=== PATIENT | female | born 1965 | race Caucasian/White ===

== ENCOUNTER → 2018-01-23 | Outpatient (CLI) | payer BC ==
[2018-01-23 11:41] LABS: BASO # 0.1 10^3/uL (0.0-0.2); BASO % 0.6 % (0.0-1.0); EOS # 0.6 10^3/uL (0.0-0.50); EOS % 6.6 % (0.0-3.0); HEMATOCRIT 41.6 % (36.0-47.0); HEMOGLOBIN 14.2 g/dl (12.0-15.5); IMMATURE GRANULOCYTE % 0.2 % (0-3.0); LYMPH # 2.4 10^3/uL (1.5-4.5); LYMPH % 25.2 % (24.0-44.0); MEAN CORPUSCULAR HEMOGLOBIN 28.8 pg (27.0-33.0); MEAN CORPUSCULAR HGB CONC 34.1 g/dl (32.0-36.5); MEAN CORPUSCULAR VOLUME 84.4 fl (80.0-96.0); MONO # 0.7 10^3/uL (0.0-0.8); MONO % 7.7 % (0.0-5.0); NEUTROPHILS # 5.7 10^3/uL (1.8-7.7); NEUTROPHILS % 59.7 % (36.0-66.0); PLATELET COUNT, AUTOMATED 289 10^3/uL (150-450); RED BLOOD COUNT 4.93 10^6/uL (4.00-5.40); RED CELL DISTRIBUTION WIDTH 13.3 % (11.5-14.5); WHITE BLOOD COUNT 9.6 10^3/uL (4.0-10.0)
[2018-01-23 12:26] LABS: ALBUMIN 3.9 GM/DL (3.2-5.2); ALBUMIN/GLOBULIN RATIO 1.26 (1.00-1.93); ALKALINE PHOSPHATASE 147 U/L (45-117); ALT/SGPT 23 U/L (12-78); ANION GAP 8 MEQ/L (8-16); AST/SGOT 20 U/L (7-37); BILIRUBIN,TOTAL 0.5 MG/DL (0.2-1.0); BLOOD UREA NITROGEN 15 MG/DL (7-18); CALCIUM LEVEL 9.2 MG/DL (8.5-10.1); CARBON DIOXIDE LEVEL 32 MEQ/L (21-32); CHLORIDE LEVEL 104 MEQ/L (98-107); CHOLESTEROL LEVEL 187 MG/DL (<200); CHOLESTEROL RISK RATIO 2.921 (<5); CREATININE FOR GFR 0.66 MG/DL (0.55-1.30); GLOMERULAR FILTRATION RATE > 60.0 (>51); GLUCOSE, FASTING 87 MG/DL (70-100); HDL CHOLESTEROL 64 MG/DL (>40); LDL CHOLESTEROL 93.8 MG/DL (<100); NON-HDL-C 123 MG/DL; POTASSIUM SERUM 3.4 MEQ/L (3.5-5.1); SODIUM LEVEL 144 MEQ/L (136-145); TRIGLYCERIDES LEVEL 146 MG/DL (<150)
== END ==
LOC: M WUC 10:06
DX: I10 Essential (primary) hypertension (principal)

== ENCOUNTER → 2018-12-06 | Outpatient (CLI) | payer BC ==
[2018-12-06 12:04] LABS: BASO # 0.1 10^3/uL (0.0-0.2); BASO % 0.7 % (0.0-1.0); EOS # 0.6 10^3/uL (0.0-0.50); EOS % 6.2 % (0.0-3.0); HEMATOCRIT 42.9 % (36.0-47.0); HEMOGLOBIN 14.7 g/dl (12.0-15.5); LYMPH # 2.5 10^3/uL (1.5-4.5); LYMPH % 25.2 % (24.0-44.0); MEAN CORPUSCULAR HEMOGLOBIN 29.1 pg (27.0-33.0); MEAN CORPUSCULAR HGB CONC 34.3 g/dl (32.0-36.5); MONO # 0.7 10^3/uL (0.0-0.8); MONO % 7.1 % (0.0-5.0); NEUTROPHILS # 5.8 10^3/uL (1.8-7.7); NEUTROPHILS % 60.1 % (36.0-66.0); PLATELET COUNT, AUTOMATED 302 10^3/uL (150-450); RED BLOOD COUNT 5.05 10^6/uL (4.00-5.40); WHITE BLOOD COUNT 9.7 10^3/uL (4.0-10.0)
[2018-12-06 12:30] LABS: ALBUMIN 4.1 GM/DL (3.2-5.2); ALT/SGPT 23 U/L (12-78); BILIRUBIN,TOTAL 0.5 MG/DL (0.2-1.0); BLOOD UREA NITROGEN 12 MG/DL (7-18); CALCIUM LEVEL 9.1 MG/DL (8.5-10.1); CARBON DIOXIDE LEVEL 30 MEQ/L (21-32); CHLORIDE LEVEL 103 MEQ/L (98-107); CHOLESTEROL LEVEL 189 MG/DL (<200); CHOLESTEROL RISK RATIO 2.454 (<5); CREATININE FOR GFR 0.72 MG/DL (0.55-1.30); FREE T4 0.93 NG/DL (0.76-1.46); GLOMERULAR FILTRATION RATE > 60.0 (>51); GLUCOSE, FASTING 94 MG/DL (70-100); HDL CHOLESTEROL 77 MG/DL (>40); LDL CHOLESTEROL 85 MG/DL (<100); NON-HDL-C 112 MG/DL; SODIUM LEVEL 141 MEQ/L (136-145); TOTAL PROTEIN 7.3 GM/DL (6.4-8.2); TRIGLYCERIDES LEVEL 137 MG/DL (<150)
[2018-12-06 12:33] LABS: HEMOGLOBIN A1c 5.2 %
== END ==
LOC: M WUC 09:53
PROVIDERS: ATTEND Physician Assistant
DX: E78.2 Mixed hyperlipidemia (principal); R53.83 Other fatigue; E66.9 Obesity, unspecified

== ENCOUNTER → 2019-01-10 | Outpatient (CLI) | payer BC ==
[2019-01-10 18:23] LABS: BLOOD UREA NITROGEN 10 MG/DL (7-18); CALCIUM LEVEL 8.9 MG/DL (8.5-10.1); CARBON DIOXIDE LEVEL 31 MEQ/L (21-32); CHLORIDE LEVEL 103 MEQ/L (98-107); CREATININE FOR GFR 0.68 MG/DL (0.55-1.30); GLOMERULAR FILTRATION RATE > 60.0 (>51); GLUCOSE, FASTING 62 MG/DL (70-100); POTASSIUM SERUM 3.2 MEQ/L (3.5-5.1); SODIUM LEVEL 144 MEQ/L (136-145)
== END ==
LOC: M WUC 09:17
PROVIDERS: ATTEND Physician Assistant
DX: R53.83 Other fatigue (principal); I10 Essential (primary) hypertension

== ENCOUNTER → 2019-01-30 | Outpatient (CLI) | payer BC ==
[2019-01-30 18:30] LABS: BLOOD UREA NITROGEN 15 MG/DL (7-18); CALCIUM LEVEL 8.9 MG/DL (8.5-10.1); CARBON DIOXIDE LEVEL 31 MEQ/L (21-32); CHLORIDE LEVEL 105 MEQ/L (98-107); CREATININE FOR GFR 0.72 MG/DL (0.55-1.30); FREE T4 0.76 NG/DL (0.76-1.46); GLOMERULAR FILTRATION RATE > 60.0 (>51); GLUCOSE, FASTING 87 MG/DL (70-100); IRON (FE) 86 UG/DL (50-170); PERCENT SATURATION 21.3 % (13.2-45.0); POTASSIUM SERUM 3.5 MEQ/L (3.5-5.1); SODIUM LEVEL 144 MEQ/L (136-145); TOTAL IRON BINDING CAPACITY 404 UG/DL (250-450)
== END ==
LOC: M WUC 10:19
PROVIDERS: ATTEND Physician Assistant
DX: R53.83 Other fatigue (principal); I10 Essential (primary) hypertension

== ENCOUNTER → 2020-01-21 | Outpatient (CLI) | payer BC ==
[2020-01-21 11:33] LABS: BASO # 0.1 10^3/uL (0.0-0.2); BASO % 0.6 % (0.0-1.0); EOS # 0.5 10^3/uL (0.0-0.5); EOS % 6.3 % (0.0-3.0); HEMATOCRIT 42.2 % (36.0-47.0); HEMOGLOBIN 14.6 g/dl (12.0-15.5); LYMPH # 2.1 10^3/uL (1.5-5.0); MEAN CORPUSCULAR HEMOGLOBIN 29.6 pg (27.0-33.0); MEAN CORPUSCULAR HGB CONC 34.6 g/dl (32.0-36.5); MEAN CORPUSCULAR VOLUME 85.4 fl (80.0-96.0); MONO # 0.7 10^3/uL (0.0-0.8); MONO % 7.5 % (0.0-5.0); NEUTROPHILS # 5.3 10^3/uL (1.5-8.5); NEUTROPHILS % 61.1 % (36.0-66.0); PLATELET COUNT, AUTOMATED 283 10^3/uL (150-450); RED BLOOD COUNT 4.94 10^6/uL (4.00-5.40); WHITE BLOOD COUNT 8.6 10^3/uL (4.0-10.0)
[2020-01-21 12:28] LABS: ALT/SGPT 23 U/L (12-78); BILIRUBIN,TOTAL 0.6 MG/DL (0.2-1.0); BLOOD UREA NITROGEN 13 MG/DL (7-18); CALCIUM LEVEL 9.7 MG/DL (8.5-10.1); CARBON DIOXIDE LEVEL 31 MEQ/L (21-32); CHLORIDE LEVEL 104 MEQ/L (98-107); CHOLESTEROL LEVEL 195 MG/DL (<200); GLOMERULAR FILTRATION RATE > 60.0 (>51); GLUCOSE, FASTING 96 MG/DL (70-100); HDL CHOLESTEROL 75 MG/DL (>40); LDL CHOLESTEROL 96 MG/DL (<100); NON-HDL-C 120 MG/DL; POTASSIUM SERUM 3.5 MEQ/L (3.5-5.1); SODIUM LEVEL 142 MEQ/L (136-145); TRIGLYCERIDES LEVEL 118 MG/DL (<150)
== END ==
LOC: M WUC 09:51
PROVIDERS: ATTEND Physician Assistant
DX: E78.2 Mixed hyperlipidemia (principal); J30.9 Allergic rhinitis, unspecified

== ENCOUNTER → 2021-01-02 | Outpatient (CLI) | payer BC ==
[2021-01-02 11:45] LABS: ALT/SGPT 29 U/L (12-78); BILIRUBIN,TOTAL 0.4 MG/DL (0.2-1.0); BLOOD UREA NITROGEN 16 MG/DL (7-18); CARBON DIOXIDE LEVEL 32 MEQ/L (21-32); CHLORIDE LEVEL 104 MEQ/L (98-107); CHOLESTEROL LEVEL 219 MG/DL (<200); CHOLESTEROL RISK RATIO 2.959 (<5); CREATININE FOR GFR 0.67 MG/DL (0.55-1.30); FREE T4 0.77 NG/DL (0.76-1.46); GLOMERULAR FILTRATION RATE > 60.0 (>51); GLUCOSE, FASTING 93 MG/DL (70-100); HDL CHOLESTEROL 74 MG/DL (>40); LDL CHOLESTEROL 108 MG/DL (<100); NON-HDL-C 145 MG/DL; POTASSIUM SERUM 3.5 MEQ/L (3.5-5.1); SODIUM LEVEL 142 MEQ/L (136-145); THYROID STIMULATING HORMONE 0.944 uIU/ML (0.358-3.740); TOTAL PROTEIN 6.9 GM/DL (6.4-8.2); TRIGLYCERIDES LEVEL 183 MG/DL (<150)
[2021-01-02 11:47] LABS: TOTAL 25(OH) VITAMIN D 42.1 NG/ML (30.0-100.0)
== END ==
LOC: M WUC 08:07
PROVIDERS: ATTEND Nurse Practitioner Family
DX: I10 Essential (primary) hypertension (principal); E55.9 Vitamin D deficiency, unspecified

== ENCOUNTER → 2022-01-30 | Outpatient (CLI) | payer BC ==
[2022-01-30 10:23] LABS: ALT/SGPT 21 U/L (12-78); BILIRUBIN,TOTAL 0.6 MG/DL (0.2-1.0); BLOOD UREA NITROGEN 17 MG/DL (7-18); CALCIUM LEVEL 10.3 MG/DL (8.5-10.1); CARBON DIOXIDE LEVEL 31 MEQ/L (21-32); CHLORIDE LEVEL 106 MEQ/L (98-107); CHOLESTEROL LEVEL 210 MG/DL (<200); CREATININE FOR GFR 0.84 MG/DL (0.55-1.30); GLOMERULAR FILTRATION RATE > 60.0 (>51); GLUCOSE, FASTING 102 MG/DL (70-100); POTASSIUM SERUM 3.1 MEQ/L (3.5-5.1); SODIUM LEVEL 144 MEQ/L (136-145); TRIGLYCERIDES LEVEL 132 MG/DL (<150)
[2022-01-30 10:24] LABS: CHOLESTEROL RISK RATIO 2.692 (<5); HDL CHOLESTEROL 78 MG/DL (>40); LDL CHOLESTEROL 106 MG/DL (<100); NON-HDL-C 132 MG/DL; TOTAL PROTEIN 7.3 GM/DL (6.4-8.2)
== END ==
LOC: M WUC 08:05
PROVIDERS: ATTEND Nurse Practitioner Family
DX: I10 Essential (primary) hypertension (principal)

== ENCOUNTER → 2023-01-29 | Outpatient (CLI) | payer BC ==
[2023-01-29 11:48] LABS: ALBUMIN 4.2 G/DL (3.2-5.2); ALKALINE PHOSPHATASE 112 U/L (46-116); ALT/SGPT 17 U/L (7.0-40); AST/SGOT 17 U/L (<34); BILIRUBIN,TOTAL 0.6 MG/DL (0.3-1.2); BLOOD UREA NITROGEN 16 MG/DL (9-23); CALCIUM LEVEL 8.9 MG/DL (8.5-10.1); CARBON DIOXIDE LEVEL 32 MMOL/L (20-31); CHLORIDE LEVEL 103 MMOL/L (98-107); CHOLESTEROL LEVEL 180 MG/DL (<200); CREATININE FOR GFR 0.75 MG/DL (0.55-1.30); GLOMERULAR FILTRATION RATE > 60.0 (>51); GLUCOSE, FASTING 88 MG/DL (60-100); HDL CHOLESTEROL 71.8 MG/DL (>40); NON-HDL-C 108.2 MG/DL; POTASSIUM SERUM 3.1 MMOL/L (3.5-5.1); SODIUM LEVEL 143 MMOL/L (136-145); TOTAL PROTEIN 6.8 G/DL (5.7-8.2); TRIGLYCERIDES LEVEL 151 MG/DL (<150)
== END ==
LOC: M WUC 08:06
PROVIDERS: ATTEND Nurse Practitioner Family
DX: I10 Essential (primary) hypertension (principal); E78.2 Mixed hyperlipidemia

== ENCOUNTER → 2023-03-07 | Outpatient (REF) | payer BC ==
[2023-03-07 10:54] LABS: BLOOD UREA NITROGEN 20 MG/DL (9-23); CALCIUM LEVEL 9.2 MG/DL (8.5-10.1); CARBON DIOXIDE LEVEL 30 MMOL/L (20-31); CHLORIDE LEVEL 105 MMOL/L (98-107); CREATININE FOR GFR 0.67 MG/DL (0.55-1.30); GLOMERULAR FILTRATION RATE > 60.0 (>51); GLUCOSE, FASTING 94 MG/DL (60-100); POTASSIUM SERUM 3.2 MMOL/L (3.5-5.1); SODIUM LEVEL 141 MMOL/L (136-145)
== END ==
LOC: M LABWUC 09:46
PROVIDERS: ATTEND Nurse Practitioner Family
DX: E87.6 Hypokalemia (principal)

== ENCOUNTER → 2023-04-28 | Outpatient (CLI) | payer BC ==
[2023-04-28 11:49] LABS: BLOOD UREA NITROGEN 18 MG/DL (9-23); CALCIUM LEVEL 9.8 MG/DL (8.5-10.1); CARBON DIOXIDE LEVEL 31 MMOL/L (20-31); CHLORIDE LEVEL 102 MMOL/L (98-107); CREATININE FOR GFR 0.72 MG/DL (0.55-1.30); GLOMERULAR FILTRATION RATE > 60.0 (>51); GLUCOSE, FASTING 91 MG/DL (60-100); POTASSIUM SERUM 3.7 MMOL/L (3.5-5.1); SODIUM LEVEL 143 MMOL/L (136-145)
== END ==
LOC: M WUC 09:17
PROVIDERS: ATTEND Nurse Practitioner Family
DX: I10 Essential (primary) hypertension (principal)

== ENCOUNTER → 2023-10-20 | Outpatient (CLI) | payer BC ==
[2023-10-20 10:13] LABS: ALKALINE PHOSPHATASE 128 U/L (46-116); ALT/SGPT 17 U/L (7.0-40); AST/SGOT 13 U/L (<34); BILIRUBIN,TOTAL 0.7 MG/DL (0.3-1.2); BLOOD UREA NITROGEN 12 MG/DL (9-23); CALCIUM LEVEL 9.7 MG/DL (8.5-10.1); CARBON DIOXIDE LEVEL 28 MMOL/L (20-31); CHLORIDE LEVEL 104 MMOL/L (98-107); CHOLESTEROL LEVEL 334 MG/DL (<200); CHOLESTEROL RISK RATIO 4.87 (<5); CREATININE FOR GFR 0.76 MG/DL (0.55-1.30); GLOMERULAR FILTRATION RATE > 60.0 (>51); GLUCOSE, FASTING 105 MG/DL (60-100); HDL CHOLESTEROL 68.5 MG/DL (>40); LDL CHOLESTEROL 216.9 MG/DL (<100); NON-HDL-C 265.5 MG/DL; POTASSIUM SERUM 3.2 MMOL/L (3.5-5.1); SODIUM LEVEL 141 MMOL/L (136-145); TRIGLYCERIDES LEVEL 243 MG/DL (<150)
== END ==
LOC: M WUC 08:44
PROVIDERS: ATTEND Nurse Practitioner Family
DX: I10 Essential (primary) hypertension (principal); E87.6 Hypokalemia; E78.2 Mixed hyperlipidemia

== ENCOUNTER → 2023-12-05 | Outpatient (CLI) | payer BC ==
[2023-12-05 13:29] LABS: BLOOD UREA NITROGEN 13 MG/DL (9-23); CALCIUM LEVEL 9.8 MG/DL (8.5-10.1); CARBON DIOXIDE LEVEL 27 MMOL/L (20-31); CHLORIDE LEVEL 106 MMOL/L (98-107); CREATININE FOR GFR 0.79 MG/DL (0.55-1.30); GLOMERULAR FILTRATION RATE > 60.0 (>51); GLUCOSE, FASTING 101 MG/DL (60-100); POTASSIUM SERUM 2.8 MMOL/L (3.5-5.1); SODIUM LEVEL 139 MMOL/L (136-145)
== END ==
LOC: M WUC 08:58
PROVIDERS: ATTEND Nurse Practitioner Family
DX: E87.6 Hypokalemia (principal)

== ENCOUNTER → 2023-12-29 | Outpatient (CLI) | payer BC ==
[2023-12-29 12:38] LABS: BLOOD UREA NITROGEN 14 MG/DL (9-23); CALCIUM LEVEL 9.6 MG/DL (8.5-10.1); CARBON DIOXIDE LEVEL 30 MMOL/L (20-31); CHLORIDE LEVEL 103 MMOL/L (98-107); CHOLESTEROL LEVEL 188 MG/DL (<200); CHOLESTEROL RISK RATIO 2.53 (<5); CREATININE FOR GFR 0.84 MG/DL (0.55-1.30); GLOMERULAR FILTRATION RATE > 60.0 (>51); GLUCOSE, FASTING 114 MG/DL (60-100); HDL CHOLESTEROL 74.3 MG/DL (>40); LDL CHOLESTEROL 62.9 MG/DL (<100); NON-HDL-C 113.7 MG/DL; POTASSIUM SERUM 3.1 MMOL/L (3.5-5.1); SODIUM LEVEL 143 MMOL/L (136-145); TRIGLYCERIDES LEVEL 254 MG/DL (<150)
== END ==
LOC: M WUC 09:10
PROVIDERS: ATTEND Nurse Practitioner Family
DX: E87.6 Hypokalemia (principal); E78.2 Mixed hyperlipidemia

== ENCOUNTER → 2024-03-16 | Outpatient (CLI) | payer BC ==
[2024-03-16 12:04] LABS: BLOOD UREA NITROGEN 19 MG/DL (9-23); CALCIUM LEVEL 9.7 MG/DL (8.5-10.1); CARBON DIOXIDE LEVEL 26 MMOL/L (20-31); CHLORIDE LEVEL 109 MMOL/L (98-107); CREATININE FOR GFR 0.87 MG/DL (0.55-1.30); GLOMERULAR FILTRATION RATE > 60.0 (>51); GLUCOSE, FASTING 91 MG/DL (60-100); POTASSIUM SERUM 3.2 MMOL/L (3.5-5.1); SODIUM LEVEL 144 MMOL/L (136-145)
== END ==
LOC: M WUC 08:19
PROVIDERS: ATTEND Nurse Practitioner Family
DX: E87.6 Hypokalemia (principal)

== ENCOUNTER → 2024-06-01 | Outpatient (CLI) | payer BC ==
[2024-06-01 12:28] LABS: BLOOD UREA NITROGEN 11 MG/DL (9-23); CALCIUM LEVEL 9.8 MG/DL (8.5-10.1); CARBON DIOXIDE LEVEL 28 MMOL/L (20-31); CHLORIDE LEVEL 109 MMOL/L (98-107); CREATININE FOR GFR 0.68 MG/DL (0.55-1.30); GLOMERULAR FILTRATION RATE > 60.0 (>51); GLUCOSE, FASTING 84 MG/DL (60-100); SODIUM LEVEL 141 MMOL/L (136-145)
== END ==
LOC: M WUC 09:57
PROVIDERS: ATTEND Nurse Practitioner Family
DX: E87.6 Hypokalemia (principal); I10 Essential (primary) hypertension

== ENCOUNTER → 2024-07-09 | Outpatient (REF) | payer BC | LOC: M LAB REF 16:10 | PROVIDERS: ATTEND Physician Assistant | DX: R30.0 Dysuria (principal) ==

== ENCOUNTER → 2024-12-09 | Outpatient (CLI) | payer BC ==
[2024-12-09 13:07] LABS: BILIRUBIN,TOTAL 0.4 MG/DL (0.3-1.2); CALCIUM LEVEL 9.5 MG/DL (8.3-10.6); CHOLESTEROL RISK RATIO 2.43 (<5); CREATININE FOR GFR 0.86 MG/DL (0.55-1.30); GLOMERULAR FILTRATION RATE 77.3 (>45); HDL CHOLESTEROL 68.6 MG/DL (>40); NON-HDL-C 98.4 MG/DL; POTASSIUM SERUM 3.9 MMOL/L (3.5-5.1)
== END ==
LOC: M WUC 08:01
PROVIDERS: ATTEND Nurse Practitioner Family
DX: I10 Essential (primary) hypertension (principal); E78.2 Mixed hyperlipidemia

== ENCOUNTER → 2024-12-16 | Outpatient (CLI) | payer BC ==
[2024-12-16 18:38] LABS: BASO # 0.1 10^3/uL (0.0-0.2); BASO % 0.6 % (0.0-1.0); EOS # 0.3 10^3/uL (0.0-0.5); EOS % 2.7 % (0.0-3.0); HEMATOCRIT 43.8 % (36.0-47.0); HEMOGLOBIN 14.5 g/dl (12.0-15.5); LYMPH # 2.9 10^3/uL (1.5-5.0); LYMPH % 30.9 % (24.0-44.0); MEAN CORPUSCULAR HEMOGLOBIN 29.8 pg (27.0-33.0); MEAN CORPUSCULAR HGB CONC 33.1 g/dl (32.0-36.5); MEAN CORPUSCULAR VOLUME 89.9 fl (80.0-96.0); MONO # 0.8 10^3/uL (0.0-0.8); MONO % 8.8 % (2.0-8.0); NEUTROPHILS # 5.3 10^3/uL (1.5-8.5); NEUTROPHILS % 56.6 % (36.0-66.0); PLATELET COUNT, AUTOMATED 287 10^3/uL (150-450); RED BLOOD COUNT 4.87 10^6/uL (4.00-5.40); WHITE BLOOD COUNT 9.3 10^3/uL (4.0-10.0)
[2024-12-16 18:39] LABS: FERRITIN 71.2 NG/ML (7.3-270.7); FREE T4 1.02 NG/DL (0.89-1.76)
[2024-12-16 18:40] LABS: THYROID STIMULATING HORMONE 0.868 uIU/ML (0.55-4.78)
[2024-12-16 18:42] LABS: FOLATE 11.7 NG/ML (>5.4)
[2024-12-16 18:43] LABS: PERCENT SATURATION 21.1 % (13.2-45.0); TOTAL 25(OH) VITAMIN D 38.7 NG/ML (20.0-100.0)
== END ==
LOC: M WUC 14:16
PROVIDERS: ATTEND Nurse Practitioner Family
DX: R53.83 Other fatigue (principal)

== ENCOUNTER → 2025-06-28 | Outpatient (CLI) | payer BC | LOC: M WUC 13:12 | PROVIDERS: ATTEND Nurse Practitioner Family | DX: M79.662 Pain in left lower leg (principal) ==

== ENCOUNTER → 2025-07-18 | Outpatient (CLI) | payer BC | LOC: M WUC 15:02 | PROVIDERS: ATTEND Nurse Practitioner Family | DX: R05.9 Cough, unspecified (principal) ==